=== PATIENT | male | born 1985 | race Caucasian/White ===

== ENCOUNTER 2019-10-17 13:40 | Emergency (ER) | payer OTHER, MEDICAID ==
[~2019-10-17] VITALS: Ht 177.8 cm; Wt 95.3 kg
[~2019-10-17 13:40] MED LIST: ACETAMINOPHEN-1 EAC1 PO; BACTRIM DS TAB1 EACH PO; CARISOPRODOL 3350 MG PO; CLEOCIN HCL150 M1 PO; CLEOCIN HCL150 MG PO; CYMBALTA30 MG PO; CYMBALTA60 MG; DOXYCYCLINE 10100 MG PO; DOXYCYCLINE HYC20 MG PO; HYDROCODON-ACE1 EAC5; HYDROCODON-ACE1 EAC7 PO; HYDROCODONE-AP1 EAC6 PO; HYDROCODONE-APA1 TA1 PO; IBUPROFEN 400400 M2 PO; LYRICA 50 MG50 MG PO; MEDROLDOSEPACK PO; MELOXICAM7.5 MG PO; PERCOCET 5-3251 EACH PO; PERCOCET 7.5-31 EACH PO; PERCOCET PO; PREDNISONE50 MG PO; PRILOSEC20 MG PO; PROBIOTIC; PROBIOTIC1 EAC1; PROZAC 20 MG20 MG; ROBAXIN500 MG PO; SENNA; SENNA8.6 MG; SENNA8.6 MG PO; TRAMADOL 50 MG50 MG; TRAMADOL 50 MG50 MG PO; ULTRAM 50MG TAB50 MG PO; ZANTAC 150MG T150 MG; ZYRTEC10 MG PO
[2019-10-17] MEDS ORDERED: HUMERA (13:53)
[2019-10-17] MEDS ORDERED: ALLEGRA ALLERGY60 MG PO (13:54)
[2019-10-17] MEDS ORDERED: HUMIRA20 MG/0.2 SUBQ (13:55)
[2019-10-17] MEDS ORDERED: DOXYCYCLINE 10100 MG PO (13:59)
[2019-10-17] MEDS ORDERED: NORCO 5-325 TA1 EAC1 PO (13:59)
[2019-10-17] MEDS ORDERED: TRAMADOL 50 MG50 MG PO (14:07)
[2019-10-17 14:15] VITALS: BP 140/92
== END 2019-10-17 14:15 | disposition home or self-care (01) ==
LOC: M.ERS 13:40
DX: L73.2 Hidradenitis suppurativa (principal); L03.314 Cellulitis of groin; M79.7 Fibromyalgia; F32.9 Major depressive disorder, single episode, unspecified; Z87.891 Personal history of nicotine dependence; Z88.6 Allergy status to analgesic agent; Z88.8 Allergy status to other drugs, medicaments and biological substances

== ENCOUNTER 2020-01-17 16:07 | Emergency (ER) | payer OTHER, MEDICAID ==
[~2020-01-17] VITALS: Ht 177.8 cm; Wt 99.8 kg
[~2020-01-17 16:07] MED LIST changes: +ALLEGRA ALLERGY60 MG PO; +HUMERA; +HUMIRA20 MG/0.2 SUBQ; +NORCO 5-325 TA1 EAC1 PO
[2020-01-17] MEDS ORDERED: CLEOCIN HCL300 MG PO (16:38)
[2020-01-17] MEDS ORDERED: NORCO 5-325 TA1 EAC1 PO (16:38)
[2020-01-17 16:50] VITALS: BP 143/86
== END 2020-01-17 16:50 | disposition home or self-care (01) ==
LOC: M.ERS 16:07
DX: K62.89 Other specified diseases of anus and rectum (principal); J45.909 Unspecified asthma, uncomplicated; M79.7 Fibromyalgia; F32.9 Major depressive disorder, single episode, unspecified; Z87.891 Personal history of nicotine dependence; Z88.6 Allergy status to analgesic agent; Z88.8 Allergy status to other drugs, medicaments and biological substances

== ENCOUNTER 2020-02-04 15:19 | Emergency (ER) | payer OTHER ==
[~2020-02-04] VITALS: Ht 177.8 cm; Wt 99.8 kg
[~2020-02-04 15:19] MED LIST changes: +CLEOCIN HCL300 MG PO
[2020-02-04] MEDS ORDERED: NORCO 5-325 TA1 EAC1 PO ×2 (15:54→15:55)
[2020-02-04] MEDS ORDERED: VIBRAMYCIN 100100 M2 PO (15:54)
[2020-02-04 16:06] VITALS: BP 136/92
== END 2020-02-04 16:06 | disposition home or self-care (01) ==
LOC: M.ERS 15:19
DX: L73.2 Hidradenitis suppurativa (principal); M79.7 Fibromyalgia; J45.909 Unspecified asthma, uncomplicated; Z88.5 Allergy status to narcotic agent; Z88.6 Allergy status to analgesic agent; Z87.891 Personal history of nicotine dependence

== ENCOUNTER 2020-03-17 19:43 | Emergency (ER) | payer OTHER ==
[~2020-03-17] VITALS: Ht 177.8 cm; Wt 98.4 kg
[~2020-03-17 19:43] MED LIST changes: +VIBRAMYCIN 100100 M2 PO
[2020-03-17] MEDS ORDERED: ALLEGRA ALLERG180 MG PO (19:56)
[2020-03-17] MEDS ORDERED: ZANTAC PO (19:56)
[2020-03-17] MEDS ORDERED: NORCO 5-325 TA1 EAC2 PO (20:15)
[2020-03-17] MEDS ORDERED: DOXYCYCLINE 10100 MG PO (20:15)
[2020-03-17 20:25] VITALS: BP 136/89
== END 2020-03-17 20:25 | disposition home or self-care (01) ==
LOC: M.ERS 19:43
DX: L02.235 Carbuncle of perineum (principal); M79.7 Fibromyalgia; J45.909 Unspecified asthma, uncomplicated; Z87.891 Personal history of nicotine dependence; Z88.6 Allergy status to analgesic agent; Z88.5 Allergy status to narcotic agent

== ENCOUNTER 2020-04-01 18:53 | Emergency (ER) | payer OTHER, MEDICAID ==
[~2020-04-01] VITALS: Ht 177.8 cm; Wt 98.4 kg
[~2020-04-01 18:53] MED LIST changes: +ALLEGRA ALLERG180 MG PO; +NORCO 5-325 TA1 EAC2 PO; +ZANTAC PO
[2020-04-01] MEDS ORDERED: BACTRIM DS TAB1 EAC1 PO (20:09)
[2020-04-01] MEDS ORDERED: NORCO 5-325 TA1 EAC2 PO (20:20)
[2020-04-01 20:22] VITALS: BP 153/63
== END 2020-04-01 20:22 | disposition home or self-care (01) ==
LOC: M.ERS 18:53
DX: L02.93 Carbuncle, unspecified (principal); L02.92 Furuncle, unspecified; J45.909 Unspecified asthma, uncomplicated; M79.7 Fibromyalgia; F32.9 Major depressive disorder, single episode, unspecified; F17.210 Nicotine dependence, cigarettes, uncomplicated; Z88.6 Allergy status to analgesic agent